=== PATIENT | male | born 1940 | race Caucasian/White ===

== ENCOUNTER → 2017-01-20 | Outpatient (CLI) | payer MEDICARE | END | disposition home or self-care (01) | LOC: PCVCIMAG 13:02 | PROVIDERS: ATTEND Nuclear Medicine Nuclear Cardiology | DX: I65.23 Occlusion and stenosis of bilateral carotid arteries (principal); I70.203 Unspecified atherosclerosis of native arteries of extremities, bilateral legs; I25.10 Atherosclerotic heart disease of native coronary artery without angina pectoris; I12.9 Hypertensive chronic kidney disease with stage 1 through stage 4 chronic kidney disease, or unspecified chronic kidney disease; N18.9 Chronic kidney disease, unspecified; I35.0 Nonrheumatic aortic (valve) stenosis; E11.9 Type 2 diabetes mellitus without complications | CPT/HCPCS: 80061; 93005; 93306; 93880; 93925; G0463 ==

== ENCOUNTER → 2017-01-26 | Outpatient (CLI) | payer MEDICARE | END | disposition home or self-care (01) | LOC: PCVCCLINIC 09:54 | PROVIDERS: ATTEND Internal Medicine Cardiovascular Disease | DX: I25.10 Atherosclerotic heart disease of native coronary artery without angina pectoris (principal) | CPT/HCPCS: 36415 ==

== ENCOUNTER → 2017-02-02 | Outpatient (CLI) | payer MEDICARE | END | disposition home or self-care (01) | LOC: PCVCIMAG 08:59 | PROVIDERS: ATTEND Internal Medicine Cardiovascular Disease | DX: I70.1 Atherosclerosis of renal artery (principal); I10 Essential (primary) hypertension; N28.9 Disorder of kidney and ureter, unspecified | CPT/HCPCS: 76770; 93975 ==

== ENCOUNTER → 2017-02-07 | Outpatient (CLI) | payer MEDICARE ==
[~2017-02-07] MED LIST: DIAZEPAM 10 MG TABLET ONE; DIPHENHYDRAMINE 50 MG/ML VIAL ONE; FAMOTIDINE 20 MG/2 ML VIAL ONE; FENTANYL PF 100 MCG/2 ML VIAL. ONE; HEPARIN for ARTERIAL LINE 1,500 ML ONE; IOHEXOL 300 MG/ML 100ML VIAL. ONE; IOHEXOL 350 MG/ML 100ML VIAL. ONE; IV NORMAL SALINE 1000ML BAG 1,000 ML ONE; LIDOCAINE 1% Multi-Dose 20 ML VIAL. ONE; MIDAZOLAM HCL 2 MG/2 ML VIAL. ONE; hydrALAZINE 20 MG/ML VIAL. ONE; methylPREDNISolone SOD SUCC PF 125 MG/2 ML VIAL. ONE
== END ==
LOC: PCVCINTER 07:30
PROVIDERS: ATTEND Internal Medicine Cardiovascular Disease
DX: I65.23 Occlusion and stenosis of bilateral carotid arteries (principal); I70.1 Atherosclerosis of renal artery; I15.0 Renovascular hypertension; Z86.73 Personal history of transient ischemic attack (TIA), and cerebral infarction without residual deficits
CPT/HCPCS: 36223; 36226; 36252; 76937; 93459; C1751; C1760; C1769; C1894; J0360; J1200; J2930; J3010; J7030; Q9967; S0028; J2250

== ENCOUNTER → 2017-10-11 | Outpatient (CLI) | payer MEDICARE ==
--- NOTE | 2017-10-11 16:26 | PCVCIMAG ---
APPROVED REPORT Laterality: Bilateral Patient Location: Out-Patient Indications Stenosis Doppler Spectral Velocity Analysis PSV / EDVPSV / EDV ECA (R) 138 / 24 cm/sECA (L) 79 / 0 cm/s dICA (R) 65 / 21 cm/sdICA (L) 92 / 16 cm/s Geno (R) 200 / 27 cm/smICA (L) 115 / 32 cm/s pICA (R) 250 / 46 cm/spICA (L) 96 / 18 cm/s Bulb (R) 61 / 13 cm/sBulb (L) 66 / 10 cm/s dCCA (R) 62 / 13 cm/sdCCA (L) 66 / 12 cm/s mCCA (R) 61 / 10 cm/smCCA (L) 90 / 39 cm/s Vert (R) 89 / 0 cm/sVert (L) 60 / 22 cm/s ICA/CCA ICA/CCA Findings The right carotid bulb has moderately severe calcified plaque. The right proximal internal carotid artery shows 70-90% stenosis. The right common carotid artery shows <40% stenosis. The right external carotid artery shows no significant stenosis. The left carotid bulb has mild plaque. The left proximal internal carotid artery shows no significant stenosis. The left common carotid artery shows no significant stenosis. The left external carotid artery shows no significant stenosis. Conclusion 1. Right internal carotid artery stenosis (70-90%) 2. Right common carotid artery stenosis (<40%) 3. Left internal carotid artery plaquing 4. Antegrade vertebral flow
--- NOTE | 2017-10-12 11:07 | PCVCIMAG ---
APPROVED REPORT Study performed: 10/11/2017 14:21:40 EXAM: Comprehensive 2D, Doppler, and color-flow Echocardiogram Patient Location: Echo lab Room #: 3Status: routine BSA: 1.86 HR: 68 bpmBP: 166/68 mmHg Rhythm: LBBB,FREQUENT PVCs Other Information Study Quality: Good Indications Aortic Valve Disease Mitral Valve Disease CAD Cardiomyopathy S/P CABG, VT 2D Dimensions IVSd: 10.78 (7-11mm)LVOT Diam: 20.53 (18-24mm) LVDd: 61.06 mm PWd: 10.51 (7-11mm)Ascending Ao: 34.09 (22-36mm) LVDs: 46.65 (25-40mm) Left Atrium: 58.97 (27-40mm) Aortic Root: 22.59 mm LV Single Plane 4CH: 38.76 % LV Single Plane 2CH: 36.87 %Rodriguez's LVEF: 37.81 % Biplane EF: 37.0 % Volumes Left Atrial Volume (Systole) Single Plane 4CH: 90.70 mLSingle Plane 2CH: 144.23 mL Biplane LA Volume: 128.00 mLLA ESV Index: 69.00 mL/m2 Aortic Valve AoV Peak Ryan.: 3.50 m/s AO Peak Gr.: 49.50 mmHgLVOT Max P.57 mmHg AO Mean Gr.: 27.97 mmHgLVOT Mean P.03 mmHg AO V2 Mean: 2.52 m/sLVOT Max V: 0.74 m/s AO V2 VTI: 88.38 cm JENNIE (VTI): 0.62 [id number] V1 VTI: 16.56 cm JENNIE Vmax: 0.70 cm2 Mitral Valve MV Peak Gr.: 15.49 mmHg MV Mean Gr.: 4.50 mmHgE/A Ratio: 2.9 MV Decel. Time: 168.02 ms MV E Max Ryan.: 1.82 m/s MV A Ryan.: 0.63 m/s MV Max Ryan.: 1.97 m/s MV VTI: 476.49 mm MVA VTI: 115.04 mm2 MV PHT: 48.73 ms TDI E/Lateral E': 16.55E/Medial E': 30.33 Medial E' Ryan.: 0.06 m/s Lateral E' Ryan.: 0.11 m/s Pulmonary Valve PV Peak Ryan.: 0.83 m/sPV Peak Gr.: 2.74 mmHg Pulmonary Vein P Vein S: 0.12 m/sP Vein A: 0.24 m/s P Vein D: 0.96 m/sP Vein A Dur.: 100.3 msec P Vein S/D Ratio: 0.13 Tricuspid Valve TR Peak Ryan.: 3.70 m/s TR Peak Gr.: 54.73 mmHg TV Vmax: 0.42 m/sPA Pressure: 65.00 mmHg Left Ventricle Left ventricle is moderately dilated. There is normal LV segmental wall motion. Mild concentric left ventricular hypertrophy. Left ventricular systolic function is moderately decreased. LVEF is 35-40%. Findings suggest the left atrial pressure is elevated. Grade III - reversible restrictive diastolic dysfunction. Right Ventricle The right ventricle is normal size. The right ventricular systolic function is normal. Atria Left atrium is severely dilated. Right atrium is moderately dilated. Aortic Valve Aortic valve has heavily calcified nodular thickening. Severe aortic valve sclerosis. Aortic valve is trileaflet. Trace aortic regurgitation. Severe aortic stenosis. Highest mean aortic valve gradient is 28mmHg. Peak aortic valve gradient is 49 mmHg. Calculated JENNIE by the continuity equation is 0.6 cm2. Mitral Valve Mitral valve leaflets are moderately thickened. Moderate mitral annular calcification. Moderate mitral stenosis with a valve area of 1.2 cm2. Severe mitral regurgitation is seen. Severe mitral regurgitation. Moderate to severe mitral stenosis. Tricuspid Valve The tricuspid valve is normal in structure. Severe tricuspid regurgitation. Moderate pulmonary hypertension with a PA pressure of 65mmHg.. Pulmonic Valve The pulmonary valve is normal in structure. Mild pulmonic regurgitation. Great Vessels The aortic root is normal in size. The ascending aorta is normal in size. IVC is not well visualized. Pericardium There is no pericardial effusion. There is no pleural effusion. <Conclusion> Left ventricle is moderately dilated. Mild concentric left ventricular hypertrophy. Left ventricular systolic function is moderately decreased. LVEF is 35-40%. Findings suggest the left atrial pressure is elevated. Grade III - reversible restrictive diastolic dysfunction. Left atrium is severely dilated. Right atrium is moderately dilated. Aortic valve has heavily calcified nodular thickening. Severe aortic valve sclerosis. Aortic valve is trileaflet. Severe aortic stenosis. Highest mean aortic valve gradient is 28mmHg. Peak aortic valve gradient is 49 mmHg. Calculated JENNIE by the continuity equation is 0.6 cm2. Mitral valve leaflets are moderately thickened. Moderate mitral annular calcification. Moderate mitral stenosis with a valve area of 1.2 cm2. Severe mitral regurgitation is seen. Severe mitral regurgitation. Severe tricuspid regurgitation. Moderate pulmonary hypertension with a PA pressure of 65mmHg.. There is no pericardial effusion.
== END | disposition home or self-care (01) ==
LOC: PCVCIMAG 12:35
PROVIDERS: ATTEND Internal Medicine Cardiovascular Disease
DX: I08.3 Combined rheumatic disorders of mitral, aortic and tricuspid valves (principal); I25.10 Atherosclerotic heart disease of native coronary artery without angina pectoris; I65.23 Occlusion and stenosis of bilateral carotid arteries; I21.9 Acute myocardial infarction, unspecified; R06.02 Shortness of breath; I42.9 Cardiomyopathy, unspecified; I10 Essential (primary) hypertension; E78.00 Pure hypercholesterolemia, unspecified; Z95.1 Presence of aortocoronary bypass graft; Z79.82 Long term (current) use of aspirin; Z79.899 Other long term (current) drug therapy
CPT/HCPCS: 80061; 93005; 93306; 93880; G0463

== ENCOUNTER → 2017-11-22 | Outpatient (CLI) | payer MEDICARE | END | disposition home or self-care (01) | LOC: PCVCCLINIC 15:26 | DX: I25.810 Atherosclerosis of coronary artery bypass graft(s) without angina pectoris (principal); I11.0 Hypertensive heart disease with heart failure; I50.23 Acute on chronic systolic (congestive) heart failure; E78.00 Pure hypercholesterolemia, unspecified; I65.29 Occlusion and stenosis of unspecified carotid artery; I08.0 Rheumatic disorders of both mitral and aortic valves; Z95.1 Presence of aortocoronary bypass graft; Z79.899 Other long term (current) drug therapy; Z79.82 Long term (current) use of aspirin | CPT/HCPCS: 93005; G0463 ==

== ENCOUNTER → 2017-11-28 | Outpatient (CLI) | payer MEDICARE ==
[~2017-11-28] MED LIST changes: +BENZOCAINE ONE 20% MUCOSAL SPRAY.; -DIAZEPAM 10 MG TABLET ONE; -DIPHENHYDRAMINE 50 MG/ML VIAL ONE; -FAMOTIDINE 20 MG/2 ML VIAL ONE; -FENTANYL PF 100 MCG/2 ML VIAL. ONE; -HEPARIN for ARTERIAL LINE 1,500 ML ONE; -IOHEXOL 300 MG/ML 100ML VIAL. ONE; -IOHEXOL 350 MG/ML 100ML VIAL. ONE; +IV NORMAL SALINE 1000ML BAG 1,000 ML; -IV NORMAL SALINE 1000ML BAG 1,000 ML ONE; -LIDOCAINE 1% Multi-Dose 20 ML VIAL. ONE; -MIDAZOLAM HCL 2 MG/2 ML VIAL. ONE; +MIDAZOLAM HCL/PF 2 MG/2 ML VIAL.; +REGADENOSON 0.4 MG/5 ML DISP.SYRIN. IV; +fentaNYL PF VIAL 100 MCG/2 ML VIAL; -hydrALAZINE 20 MG/ML VIAL. ONE; -methylPREDNISolone SOD SUCC PF 125 MG/2 ML VIAL. ONE
== END | disposition home or self-care (01) ==
LOC: PCVCINTER 08:45
DX: I08.3 Combined rheumatic disorders of mitral, aortic and tricuspid valves (principal); E78.5 Hyperlipidemia, unspecified; I25.10 Atherosclerotic heart disease of native coronary artery without angina pectoris; I73.9 Peripheral vascular disease, unspecified; E78.00 Pure hypercholesterolemia, unspecified; I10 Essential (primary) hypertension; E11.9 Type 2 diabetes mellitus without complications
CPT/HCPCS: 78452; 93017; 93312; 93325; 99152; 99153; A9500; J2250; J2785; J3010; J7030

== ENCOUNTER → 2018-02-17 | Outpatient (CLI) | payer MEDICARE | END | disposition home or self-care (01) | LOC: PCVCCLINIC 11:08 | DX: I25.10 Atherosclerotic heart disease of native coronary artery without angina pectoris (principal); I10 Essential (primary) hypertension; I08.0 Rheumatic disorders of both mitral and aortic valves; E78.00 Pure hypercholesterolemia, unspecified; I65.29 Occlusion and stenosis of unspecified carotid artery; I77.9 Disorder of arteries and arterioles, unspecified; R94.31 Abnormal electrocardiogram [ECG] [EKG]; Z95.1 Presence of aortocoronary bypass graft; Z79.899 Other long term (current) drug therapy; Z79.82 Long term (current) use of aspirin; Z88.0 Allergy status to penicillin | CPT/HCPCS: 80061; 93005; G0463 ==

== ENCOUNTER → 2018-06-28 | Outpatient (CLI) | payer MEDICARE ==
--- NOTE | 2018-06-28 12:54 | PCVCIMAG ---
APPROVED REPORT Patient Location: Out-Patient Indications Bruit Stenosis Doppler Spectral Velocity Analysis PSV / EDVPSV / EDV ECA (R) 150 / 11 cm/sECA (L) 79 / 8 cm/s dICA (R) 63 / 14 cm/sdICA (L) 94 / 23 cm/s Geno (R) 206 / 34 cm/smICA (L) 130 / 18 cm/s pICA (R) 280 / 18 cm/spICA (L) 101 / 8 cm/s Bulb (R) 134 / 8 cm/sBulb (L) 96 / 5 cm/s dCCA (R) 86 / 10 cm/sdCCA (L) 77 / 10 cm/s mCCA (R) 65 / 8 cm/smCCA (L) 91 / 14 cm/s Vert (R) 105 / 0 cm/sVert (L) 83 / 18 cm/s ICA/CCA 3.26 ICA/CCA 1.69 Findings The right carotid bulb has severe heterogeneous plaque. The right proximal internal carotid artery shows 70-90% stenosis. The right common carotid artery shows <40% stenosis. The right external carotid artery shows no significant stenosis. The left carotid bulb has mild plaque. The left proximal internal carotid artery shows <40% stenosis. The left common carotid artery shows no significant stenosis. The left external carotid artery shows no significant stenosis. Conclusion 1. Right internal carotid artery stenosis (70-90%) 2. Right common carotid artery stenosis (<40%) 3. Left internal carotid artery plaquing (<40%) 4. Antegrade vertebral flow Similar to a study dated Sep, 2017
--- NOTE | 2018-06-28 17:08 | PCVCIMAG ---
EXAM: BILATERAL LOWER EXTREMITY ARTERIAL DUPLEX INDICATION: Peripheral Arterial Disease. Leg pain. FINDINGS: Right Leg: Common femoral and profunda femoral arteries are patent. Superficial femoral artery is patent including previous stent distally. 95% stenosis [place] popliteal artery. Anterior tibial artery is occluded throughout. Peroneal artery and posterior tibial artery are patent. Left Leg: Complete occlusion common femoral artery. Reversed flow in the profunda femoral artery with severely blunted flow throughout the superficial femoral artery. Previous superficial femoral artery stents are patent. Popliteal artery is patent. Posterior tibial artery is occluded. Peroneal and anterior tibial arteries are patent. IMPRESSION: Previous right superficial femoral artery stent is patent. 95% stenosis [place] right popliteal artery. Interval occlusion left common femoral artery. Reversed flow left profunda femoral artery with blunted flow throughout the superficial femoral artery and popliteal artery left leg. Unchanged occlusion right anterior tibial and left posterior tibial artery. LOC:[id number]
== END | disposition home or self-care (01) ==
LOC: PCVCIMAG 13:51
PROVIDERS: ATTEND Internal Medicine Cardiovascular Disease
DX: I25.10 Atherosclerotic heart disease of native coronary artery without angina pectoris (principal); E78.00 Pure hypercholesterolemia, unspecified; I73.9 Peripheral vascular disease, unspecified; I65.23 Occlusion and stenosis of bilateral carotid arteries; I08.0 Rheumatic disorders of both mitral and aortic valves; I10 Essential (primary) hypertension; Z95.1 Presence of aortocoronary bypass graft; Z79.82 Long term (current) use of aspirin
CPT/HCPCS: 93005; 93306; 93880; 93925; G0463